=== PATIENT | male | born 1980 | race Caucasian/White ===

== ENCOUNTER 2019-06-18 14:29 | Emergency (ER) | payer OTHER ==
--- NOTE | 2019-06-18 14:40 | ERPHSYRPT ---
- History of Present Illness Time Seen by Provider: 06/18/19 14:29 Exam Limitations: no limitations Physician History: left flank and abdominal pain and since yesterday. The patient admits to using meth and marijuana for 5 days ago. Timing/Duration: yesterday Activities at Onset: none Quality: cramping Abdominal Pain Onset Location: LUQ, flank Pain Radiation: periumbilical Severity of Pain-Max: moderate Severity of Pain-Current: moderate Modifying Factors: Improves With: nothing Associated Symptoms: nausea, No back, No chest pain, No diaphoresis, No diarrhea , No fever/chills, No fatigue, No headache, No heartburn, No loss of appetite, No neck pain, No rash Previous symptoms: no prior history Allergies/Adverse Reactions: Penicillins Allergy (Verified 06/18/19 14:42) - Review of Systems Constitutional: No Fever, No Chills Eyes: No Symptoms Ears, Nose, & Throat: No Symptoms Respiratory: No Cough, No Dyspnea Cardiac: No Chest Pain, No Edema, No Syncope Abdominal/Gastrointestinal: Abdominal Pain, Nausea, Other (left flank pain), No Vomiting, No Diarrhea Genitourinary Symptoms: No Dysuria Musculoskeletal: No Back Pain, No Neck Pain Skin: No Rash Neurological: No Dizziness, No Focal Weakness, No Sensory Changes Psychological: No Symptoms Endocrine: No Symptoms All Other Systems: Reviewed and Negative - Nursing Vital Signs Nursing Vital Signs: Initial Vital Signs Temperature 97.6 F 06/18/19 14:35 Pulse Rate 96 H 06/18/19 14:35 Respiratory Rate 18 06/18/19 14:35 Blood Pressure 168/113 06/18/19 14:35 O2 Sat by Pulse Oximetry 98 06/18/19 14:35 Pain Scale Pain Intensity 0 - Physical Exam General Appearance: no apparent distress, alert Eye Exam: PERRL/EOMI, eyes nml inspection Ears, Nose, Throat Exam: normal ENT inspection, pharynx normal, moist mucous membranes Neck Exam: normal inspection, non-tender, supple, full range of motion Respiratory Exam: normal breath sounds, lungs clear, No respiratory distress Cardiovascular Exam: regular rate/rhythm, normal heart sounds, No friction rub Gastrointestinal/Abdomen Exam: soft, tenderness (left flank and left upper quadrant), No mass Male Genitalia Exam: No hernia Back Exam: normal inspection, normal range of motion, No CVA tenderness, No vertebral tenderness Extremity Exam: normal inspection, normal range of motion, pelvis stable Neurologic Exam: alert, oriented x 3, cooperative, normal mood/affect, nml cerebellar function, sensation nml, No motor deficits Skin Exam: normal color, warm, dry - Course Nursing assessment & vital signs reviewed: Yes - CT Exams Abdomen/Pelvis CT Interpretation: Tele-radiologist Report, Other (left upper e5 millimeters stone with high-grade obstruction and hydronephrosis.) Ordered Tests: Active Orders 24 hr Category Date Time Status IV Insertion STAT Care 06/18/19 14:36 Active NPO (ED) STAT Care 06/18/19 14:36 Active ABDOMEN AND PELVIS W/0 CONTRAS [CT] Stat Exams 06/18/19 14:37 Completed CBC W DIFF Stat Lab 06/18/19 15:00 Completed CMP Stat Lab 06/18/19 15:00 Completed LIPASE Stat Lab 06/18/19 15:00 Completed UA W/RFX UR CULTURE Stat Lab 06/18/19 15:33 Completed Urine Triage Profile Stat Lab 06/18/19 15:33 Completed Medication Summary Discontinued Medications Generic Name Dose Route Start Last Admin Trade Name Freq PRN Reason Stop Dose Admin Sodium Chloride 1,000 mls @ 999 mls/hr 06/18/19 14:36 06/18/19 15:49 Sodium Chloride 0.9% 1000 Ml IV 06/18/19 15:36 Infused .Q1H1M STA Infusion Sodium Chloride Confirm 06/18/19 14:43 Sodium Chloride 0.9% 1000 Ml Administered 06/18/19 14:44 Dose 1,000 mls @ ud .ROUTE .STK-MED ONE Ketorolac Tromethamine 15 mg 06/18/19 14:36 06/18/19 14:50 Toradol 30 Mg Injection IV 06/18/19 14:37 15 mg STAT ONE Administration Ketorolac Tromethamine Confirm 06/18/19 14:43 Toradol 30 Mg Injection Administered 06/18/19 14:44 Dose 30 mg .ROUTE .STK-MED ONE Ondansetron HCl 4 mg 06/18/19 14:36 06/18/19 14:49 Zofran 4 Mg/2 Ml Vial IV 06/18/19 14:37 4 mg STAT ONE Administration Ondansetron HCl Confirm 06/18/19 14:43 Zofran 4 Mg/2 Ml Vial Administered 06/18/19 14:44 Dose 4 mg .ROUTE .STK-MED ONE Lab/Rad Data: Laboratory Result Diagrams 06/18/19 15:00 06/18/19 15:00 Laboratory Results 06/18/19 06/18/19 06/18/19 Range/Units 15:33 15:33 15:00 WBC (4.0-10.5) K/mm3 RBC (4.1-5.6) M/mm3 Hgb (12.5-18.0) gm/dl Hct (42-50) % MCV (78-100) fl MCH (26-32) pg MCHC (32-36) g/dl RDW (11.5-14.0) % Plt Count (150-450) K/mm3 MPV (6-9.5) fl Gran % (36.0-66.0) % Eos # (Auto) (0-0.5) Absolute Lymphs (auto) (1.0-4.6) Absolute Monos (auto) (0.0-1.3) Lymphocytes % (24.0-44.0) % Monocytes % (0.0-12.0) % Eosinophils % (0.00-5.0) % Basophils % (0.0-0.4) % Absolute Granulocytes (1.4-6.9) Basophils # (0-0.4) Sodium 134 L (137-145) mmol/L Potassium 4.0 (3.5-5.1) mmol/L Chloride 102 (98-107) mmol/L Carbon Dioxide 23 (22-30) mmol/L Anion Gap 13.7 (5-15) MEQ/L BUN 10 (9-20) mg/dL Creatinine 1.38 H (0.66-1.25) mg/dL Estimated GFR > 60.0 ML/MIN Glucose 135 H (74-106) mg/dL Calcium 9.2 (8.4-10.2) mg/dL Total Bilirubin 0.70 (0.2-1.3) mg/dL AST 36 (17-59) U/L ALT 51 H (0-50) U/L Alkaline Phosphatase 92 (38-126) U/L Serum Total Protein 7.5 (6.3-8.2) g/dL Albumin 4.1 (3.5-5.0) g/dL Lipase 103 (23-300) U/L Urine Color YELLOW (YELLOW) Urine Appearance CLEAR (CLEAR) Urine pH 6.0 (5-6) Ur Specific [place] 1.014 (1.005-1.025) Urine Protein NEGATIVE (Negative) Urine Ketones NEGATIVE (NEGATIVE) Urine Blood NEGATIVE (0-5) Charles/ul Urine Nitrite NEGATIVE (NEGATIVE) Urine Bilirubin NEGATIVE (NEGATIVE) Urine Urobilinogen NEGATIVE (0-1) mg/dL Ur Leukocyte Esterase NEGATIVE (NEGATIVE) Urine WBC (Auto) NONE (0-5) /HPF Urine RBC (Auto) NONE (0-2) /HPF U Epithel Cells (Auto) NONE (FEW) /HPF Urine Bacteria (Auto) NONE (NEGATIVE) /HPF Urine Culture Reflexed NO (NO) Urine Glucose NEGATIVE (NEGATIVE) mg/dL Urine Opiates Level NEGATIVE (NEGATIVE) Ur Methadone NEGATIVE (NEGATIVE) Urine Barbiturates NEGATIVE (NEGATIVE) Ur Phencyclidine (PCP) NEGATIVE (NEGATIVE) Urine Amphetamine POSITIVE (NEGATIVE) U Benzodiazepine Level NEGATIVE (NEGATIVE) Urine Cocaine NEGATIVE (NEGATIVE) Urine Marijuana (THC) POSITIVE (NEGATIVE) 06/18/19 Range/Units 15:00 WBC 15.6 H (4.0-10.5) K/mm3 RBC 5.01 (4.1-5.6) M/mm3 Hgb 16.2 (12.5-18.0) gm/dl Hct 46.3 (42-50) % MCV 92.4 (78-100) fl MCH 32.3 H (26-32) pg MCHC 35.0 (32-36) g/dl RDW 12.5 (11.5-14.0) % Plt Count 280 (150-450) K/mm3 MPV 9.5 (6-9.5) fl Gran % 71.6 H (36.0-66.0) % Eos # (Auto) 0.12 (0-0.5) Absolute Lymphs (auto) 3.27 (1.0-4.6) Absolute Monos (auto) 1.02 (0.0-1.3) Lymphocytes % 20.9 L (24.0-44.0) % Monocytes % 6.5 (0.0-12.0) % Eosinophils % 0.8 (0.00-5.0) % Basophils % 0.2 (0.0-0.4) % Absolute Granulocytes 11.19 H (1.4-6.9) Basophils # 0.03 (0-0.4) Sodium (137-145) mmol/L Potassium (3.5-5.1) mmol/L Chloride (98-107) mmol/L Carbon Dioxide (22-30) mmol/L Anion Gap (5-15) MEQ/L BUN (9-20) mg/dL Creatinine (0.66-1.25) mg/dL Estimated GFR ML/MIN Glucose (74-106) mg/dL Calcium (8.4-10.2) mg/dL Total Bilirubin (0.2-1.3) mg/dL AST (17-59) U/L ALT (0-50) U/L Alkaline Phosphatase (38-126) U/L Serum Total Protein (6.3-8.2) g/dL Albumin (3.5-5.0) g/dL Lipase (23-300) U/L Urine Color (YELLOW) Urine Appearance (CLEAR) Urine pH (5-6) Ur Specific [place] (1.005-1.025) Urine Protein (Negative) Urine Ketones (NEGATIVE) Urine Blood (0-5) Charles/ul Urine Nitrite (NEGATIVE) Urine Bilirubin (NEGATIVE) Urine Urobilinogen (0-1) mg/dL Ur Leukocyte Esterase (NEGATIVE) Urine WBC (Auto) (0-5) /HPF Urine RBC (Auto) (0-2) /HPF U Epithel Cells (Auto) (FEW) /HPF Urine Bacteria (Auto) (NEGATIVE) /HPF Urine Culture Reflexed (NO) Urine Glucose (NEGATIVE) mg/dL Urine Opiates Level (NEGATIVE) Ur Methadone (NEGATIVE) Urine Barbiturates (NEGATIVE) Ur Phencyclidine (PCP) (NEGATIVE) Urine Amphetamine (NEGATIVE) U Benzodiazepine Level (NEGATIVE) Urine Cocaine (NEGATIVE) Urine Marijuana (THC) (NEGATIVE) - Progress Progress: improved Progress Note: pain is significantly better. The on the CT scan patient has a 5 mm upper ureteric stone with high-grade obstruction. I offered transfer to the hospital. Patient refused stating that he wants to spend the new year to home. No acute life or limb threatening condition. The urine does not show any signs of infection. The explained the need to see the urologist for further management as soon as possible. Patient understood and agreed. 06/18/19 16:28 Counseled pt/family regarding: lab results, diagnosis, need for follow-up, rad results (See. urologist as soon as possible) - Departure Departure Disposition: Home Clinical Impression: Ureteric calculus, Ureteric colic, Substance abuse Condition: Good Critical Care Time: No Referrals: HUBER MURILLO [Family Provider] - 06/19/19 Instructions: Kidney Stones in Adults, Extracorporeal Shock Wave Lithotripsy for Kidney Stones Plan of Treatment: see urologist as soon as possible Prescriptions: Ondansetron ODT 4 MG [Zofran Odt 4 mg] 4 mg PO Q6H PRN PRN #10 tab.rapdis PRN Reason: Vomiting Ketorolac Tromethamine [Toradol] 10 mg PO BID PRN 3 Days #6 tablet PRN Reason: Pain Smz/Tmp Ds Tablet [Bactrim Ds Tablet] 1 udtab PO BID 5 Days #10 tablet Tamsulosin HCl 0.4 mg [Flomax 0.4 MG] 0.4 mg PO DAILY 5 Days #5 cap
[2019-06-18] MEDS ORDERED: TORAdol 30 mg Injection ONE (14:43)
[2019-06-18] MEDS ORDERED: Sodium Chloride 0.9% 1000 ML 1,000 ML ONE (14:43)
[2019-06-18] MEDS ORDERED: Zofran 4 MG/2 ML VIAL ONE (14:43)
[2019-06-18] MEDS: Sodium Chloride 0.9% 1000 ML 1,000 ML IV STA (14:46)
[2019-06-18] MEDS: Zofran 4 MG/2 ML VIAL IV ONE (14:49)
[2019-06-18] MEDS: TORAdol 30 mg Injection IV ONE (14:50)
[2019-06-18 15:16] LABS: Absolute Neutrophil Ct (ANC) 11.19 (1.4-6.9); BASOPHIL % 0.2 % (0.0-0.4); Basophil (Absolute #) 0.03 (0-0.4); Eosinophil % 0.8 % (0.00-5.0); Eosinophil (Absolute #) 0.12 (0-0.5); Hematocrit 46.3 % (42-50); Hemoglobin 16.2 gm/dl (12.5-18.0); Lymphocyte (Absolute #) 3.27 (1.0-4.6); Lymphocytes % 20.9 % (24.0-44.0); Mean Cell Volume 92.4 fl (78-100); Mean Corpuscular Hemoglobin 32.3 pg (26-32); Mean Platelet Volume 9.5 fl (6-9.5); Monocyte (Absolute #) 1.02 (0.0-1.3); Monocytes % 6.5 % (0.0-12.0); Neutrophil % 71.6 % (36.0-66.0); Platelet Count 280 K/mm3 (150-450); Red Blood Count 5.01 M/mm3 (4.1-5.6); Red Cell Distribution Width 12.5 % (11.5-14.0); White Blood Count 15.6 K/mm3 (4.0-10.5)
[2019-06-18 15:29] LABS: ALBUMIN 4.1 g/dL (3.5-5.0); ALKALINE PHOSPHATASE 92 U/L (38-126); ANION GAP 13.7 MEQ/L (5-15); BLOOD UREA NITROGEN 10 mg/dL (9-20); CHLORIDE 102 mmol/L (98-107); Calcium 9.2 mg/dL (8.4-10.2); Carbon Dioxide 23 mmol/L (22-30); Creatinine 1 1.38 mg/dL (0.66-1.25); Glucose 135 mg/dL (74-106); LIPASE 103 U/L (23-300); SGOT/AST 36 U/L (17-59); SGPT/ALT 51 U/L (0-50); SODIUM 134 mmol/L (137-145); Total Protein 7.5 g/dL (6.3-8.2)
--- NOTE | 2019-06-18 15:47 | XRAY ---
Indication: Flank pain. Multiple contiguous axial images obtained through the abdomen and pelvis without contrast as ordered. Comparison: None Lung bases demonstrates minimal bibasilar dependent atelectasis and small left base calcified granuloma. Medial right middle lobe demonstrates 4 mm noncalcified nodule probably granulomatous. No infiltrate or effusion. Heart is not enlarged. Noncontrasted stomach and bowel loops appear nonobstructed. Normal appendix. There is a 5-6 mm proximal left ureter calculus, approximately L4 level. Proximal left ureter is prominent and there is moderate hydronephrosis with perinephric fluid/stranding favoring high-grade obstruction. Left kidney demonstrates additional 7 mm calculus and punctate calculus. Remaining liver, gallbladder, pancreas, spleen, adrenal glands, right kidney, right ureter, and bladder appear unremarkable for noncontrast exam. Minimal distal aortic calcifications without AAA. Osseous structures intact. Impression: 1. 5-6 mm proximal left ureter calculus producing high-grade obstruction as detailed. Additional left renal micro-calculi. 2. Right middle lobe noncalcified micronodule probably granulomatous as there is evidence for old granulomas disease elsewhere. 3. Remaining CT abdomen/pelvis without contrast exam is negative. CTDI 18.30
[2019-06-18 15:51] LABS: Appearance CLEAR (CLEAR); Bilirubin NEGATIVE (NEGATIVE); Blood NEGATIVE Ery/ul (0-5); Glucose NEGATIVE (NEGATIVE); Ketones NEGATIVE (NEGATIVE); Leukocyte Esterase NEGATIVE (NEGATIVE); Nitrite NEGATIVE (NEGATIVE); Protein,Urine Dip NEGATIVE (Negative); Specific Gravity 1.014 (1.005-1.025); Urobilinogen NEGATIVE mg/dL (0-1)
[2019-06-18 16:04] LABS: Barbiturate,Urine NEGATIVE (NEGATIVE); Benzodiazepine,Urine NEGATIVE (NEGATIVE); Cocaine,Urine NEGATIVE (NEGATIVE); Methadone,Urine NEGATIVE (NEGATIVE); Opiate,Urine NEGATIVE (NEGATIVE); PCP,Urine NEGATIVE (NEGATIVE); THC,Urine POSITIVE (NEGATIVE)
[2019-06-18 16:10] VITALS: BP 121/81; PULSE 72; O2SAT 96
[2019-06-18 16:25] LABS: Amphetamine,Urine POSITIVE (NEGATIVE)
== END 2019-06-18 17:20 | disposition home or self-care (01) ==
LOC: ED 14:29
DX: N20.1 Calculus of ureter (principal); N23 Unspecified renal colic; F19.10 Other psychoactive substance abuse, uncomplicated
CPT/HCPCS: 36000; 36415; 74176; 80053; 80307; 81001; 83690; 85025; 96360; 96374; 96375; 99284; J1885; J2405

== ENCOUNTER 2020-01-05 14:03 | Emergency (ER) | payer MEDICAID, OTHER ==
[2020-01-05] MEDS ORDERED: Fluor-I-Strip/Ful-Flo OP ONE ×2 (14:09→14:37)
[2020-01-05] MEDS ORDERED: Eye-Stream Solution ONE (14:09)
[2020-01-05] MEDS ORDERED: TETRACAINE 0.5% STERI-UNIT SOL OP ONE (14:09)
[2020-01-05 14:17] VITALS: BP 141/93; O2SAT 98
--- NOTE | 2020-01-05 14:22 | ERPHSYRPT ---
- History of Present Illness Time Seen by Provider: 01/05/20 14:15 Patient Subjective Stated Complaint: Pt states "About 3 days ago I had this pimple like thing above my eyebrow and now it is everywhere over my left eye." Triage Nursing Assessment: Pt presented aelrt and oriented X 3, skin pwd PT ambulates with an upright steady gait, able to speak in clear full sentences pt has red rash noted to left face. Physician History: Claudio presents with a painful area of the left forehead for several days and now has developed a rash vesicular in that area. He is upper and lower lids have been swollen but he denies any change in his vision he denies any tenderness at the tip of his nose. He denies any photophobia. Timing/Duration: day(s) (3) Quality: burning, itchy, painful Severity: moderate Location: scalp (Left Forehead and scalp), face Possible Causes: no cause identified Associated Symptoms: blisters, headache Allergies/Adverse Reactions: Penicillins Allergy (Verified 06/18/19 14:42) Hx Tetanus, Diphtheria Vaccination/Date Given: Yes Hx Influenza Vaccination/Date Given: Yes Hx Pneumococcal Vaccination/Date Given: No Immunizations Up to Date: Yes Travel Risk - International Travel Have you traveled outside of the country in past 3 weeks: No - Coronavirus Screening Are you exhibiting any of the following symptoms?: No Close contact with a COVID-19 positive Pt in past 14-21 Days: No - Review of Systems Constitutional: No Fever, No Chills Eyes: Tearing, Other (edema of the eyelids) Ears, Nose, & Throat: No Symptoms Respiratory: No Cough, No Dyspnea Cardiac: No Chest Pain, No Edema, No Syncope Abdominal/Gastrointestinal: No Abdominal Pain, No Nausea, No Vomiting, No Diarrhea Genitourinary Symptoms: No Dysuria Musculoskeletal: No Back Pain, No Neck Pain Skin: Rash, Skin Lesions Neurological: No Dizziness, No Focal Weakness, No Sensory Changes Psychological: No Symptoms Endocrine: No Symptoms All Other Systems: Reviewed and Negative - Past Medical History Pertinent Past Medical History: No Neurological History: No Pertinent History ENT History: No Pertinent History Cardiac History: No Pertinent History Respiratory History: No Pertinent History Endocrine Medical History: No Pertinent History Musculoskeletal History: No Pertinent History GI Medical History: No Pertinent History Psycho-Social History: No Pertinent History Male Reproductive Disorders: No Pertinent History - Past Surgical History Past Surgical History: Yes Neuro Surgical History: No Pertinent History Cardiac: No Pertinent History Respiratory: No Pertinent History Gastrointestinal: No Pertinent History Genitourinary: No Pertinent History Musculoskeletal: No Pertinent History Male Surgical History: No Pertinent History Other Surgical History: kidney stone stent - Social History Smoking Status: Never smoker How long have you smoked: years Exposure to second hand smoke: Yes Drug Use: marijuana, methamphetamines Patient Lives Alone: Yes - Nursing Vital Signs Nursing Vital Signs: Initial Vital Signs Temperature 98.8 F 01/05/20 14:08 Pulse Rate 116 H 01/05/20 14:08 Respiratory Rate 22 01/05/20 14:08 Blood Pressure 141/93 01/05/20 14:08 O2 Sat by Pulse Oximetry 97 01/05/20 14:08 Pain Scale Pain Intensity 8 - Physical Exam General Appearance: mild distress, alert Eye Exam: PERRL/EOMI, other (Lids are swollen fluorescein dye in the left eye and examination of bluelight showed no obvious ulcerations or erosions.) Ears, Nose, Throat Exam: normal ENT inspection, pharynx normal, moist mucous membranes Neck Exam: normal inspection, non-tender, supple, full range of motion Respiratory Exam: normal breath sounds, lungs clear, No respiratory distress Cardiovascular Exam: regular rate/rhythm, normal heart sounds Gastrointestinal/Abdomen Exam: soft, mass, No tenderness Back Exam: normal inspection, normal range of motion, No CVA tenderness, No vertebral tenderness Extremity Exam: normal inspection, normal range of motion Neurologic Exam: alert, oriented x 3, cooperative, normal mood/affect, sensation nml, EOM palsy, No motor deficits Skin Exam: rash, other (Generally the skin is warm and dry however in the left forehead and left scalp there is a vesicular rash with some crusting. Consistent with zoster) Lymphatic Exam: adenopathy SpO2 Interpretation: normal SpO2: 98 O2 Delivery: Room Air Procedures - Eye Procedure Alcaine Drops Administered: Yes - Course Nursing assessment & vital signs reviewed: Yes Ordered Tests: Medication Summary Discontinued Medications Generic Name Dose Route Start Last Admin Trade Name Freq PRN Reason Stop Dose Admin Eye Irrigation Solution Confirm 01/05/20 14:09 Eye-Stream Solution Administered 01/05/20 14:10 Dose 30 ml .ROUTE .STK-MED ONE Fluorescein Sodium Confirm 01/05/20 14:09 Wxevi-C-Mtcmb/Ful-Yamil Administered 01/05/20 14:10 Dose 1 mg OP .STK-MED ONE Tetracaine HCl Confirm 01/05/20 14:09 Tetracaine 0.5% Steri-Unit Wilma Administered 01/05/20 14:10 Dose 4 ml OP .STK-MED ONE - Progress Progress: unchanged - Departure Departure Disposition: Home Clinical Impression: Herpes zoster Condition: Stable Critical Care Time: No Referrals: GERALD GAMBINO MD [Primary Care Provider] - Instructions: Shingles (DC) Additional Instructions: 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
[2020-01-05] MEDS ORDERED: TETRACAINE 0.5% STERI-UNIT SOL OP STA (14:34)
[2020-01-05] MEDS ORDERED: Eye-Stream Solution OP ONE (14:35)
[2020-01-05 14:43] VITALS: PULSE 110
== END 2020-01-05 14:56 | disposition home or self-care (01) ==
LOC: ED 14:03
DX: B02.9 Zoster without complications (principal)
CPT/HCPCS: 99283; A9270-GY

== ENCOUNTER 2021-01-10 14:08 | Emergency (ER) | payer MEDICAID, OTHER ==
[2021-01-10 14:32] VITALS: BP 166/98; PULSE 100; O2SAT 96
[2021-01-10] MEDS ORDERED: Adacel Vial IM ONE ×2 (14:33→14:48)
--- NOTE | 2021-01-10 14:34 | ERPHSYRPT ---
- History of Present Illness Time Seen by Provider: 01/10/21 14:09 Source: patient Exam Limitations: no limitations Patient Subjective Stated Complaint: Pt was at a persons house to look at a puppy to buy when he was attacked by 6-8 ramirez suri terrior dogs (not puppies), pt was bit on his posterior left calf and right calf and right buttock Triage Nursing Assessment: Pt was brought to the ER by his boyfriend, hypertensive, rates pain 2/10, not actively bleeding, denies any other injuries Physician History: 41 years old male presented in the ER with chief complaint of dog bite at bilateral lower legs and right buttock area when he was placed to buy puppy and was attacked by multiple [place] Sur[place] dog's prior to arrival which according to tandem operator are immunized. There was minimal bleeding initially but stopped. Complaining of dull aching to burning pain with palpation. Unsure about tetanus status. No difficulty movements/walking. Timing/Duration: today, sudden, improved Quality: burning, painful Severity: mild Location: extremities Possible Causes: other Associated Symptoms: rash, swelling/mass/lumps Allergies/Adverse Reactions: Penicillins Allergy (Verified 01/10/21 14:31) Hx Tetanus, Diphtheria Vaccination/Date Given: Yes Hx Influenza Vaccination/Date Given: Yes Hx Pneumococcal Vaccination/Date Given: No Travel Risk - International Travel Have you traveled outside of the country in past 3 weeks: No - Coronavirus Screening Are you exhibiting any of the following symptoms?: No Close contact with a COVID-19 positive Pt in past 14-21 Days: No - Vaccine Status Have you recieved a Covid-19 vaccination: No - Review of Systems Constitutional: No Symptoms Eyes: No Symptoms Ears, Nose, & Throat: No Symptoms Respiratory: No Symptoms Cardiac: No Symptoms Abdominal/Gastrointestinal: No Symptoms Genitourinary Symptoms: No Symptoms Musculoskeletal: Injury Skin: Skin Lesions Neurological: No Symptoms Psychological: No Symptoms Endocrine: No Symptoms Hematologic/Lymphatic: No Symptoms - Past Medical History Pertinent Past Medical History: No Neurological History: No Pertinent History ENT History: No Pertinent History Cardiac History: No Pertinent History Respiratory History: No Pertinent History Endocrine Medical History: No Pertinent History Musculoskeletal History: No Pertinent History GI Medical History: No Pertinent History Psycho-Social History: No Pertinent History Male Reproductive Disorders: No Pertinent History - Past Surgical History Past Surgical History: Yes Neuro Surgical History: No Pertinent History Cardiac: No Pertinent History Respiratory: No Pertinent History Gastrointestinal: No Pertinent History Genitourinary: No Pertinent History Musculoskeletal: No Pertinent History Male Surgical History: No Pertinent History Other Surgical History: kidney stone stent - Social History Smoking Status: Current every day smoker How long have you smoked: years Exposure to second hand smoke: Yes Drug Use: marijuana, methamphetamines Patient Lives Alone: No - Nursing Vital Signs Nursing Vital Signs: Initial Vital Signs Temperature 96 F 01/10/21 14:17 Pulse Rate 100 H 01/10/21 14:17 Blood Pressure 166/98 01/10/21 14:17 O2 Sat by Pulse Oximetry 96 01/10/21 14:17 Pain Scale Pain Intensity 2 - Physical Exam General Appearance: no apparent distress Eye Exam: PERRL/EOMI Neck Exam: normal inspection, supple, full range of motion Respiratory Exam: normal breath sounds, lungs clear Cardiovascular Exam: regular rate/rhythm, normal heart sounds Extremity Exam: other (Multiple dog bite vaz on the left lower leg/right lower leg and right buttock with no active bleeding or spurting. Minimal erythema around. Mildly tenderness to palpation.) Neurologic Exam: alert, oriented x 3, cooperative Skin Exam: normal color SpO2 Interpretation: normal SpO2: 96 O2 Delivery: Room Air Ordered Tests: Medication Summary Discontinued Medications Generic Name Dose Route Start Last Admin Trade Name Freq PRN Reason Stop Dose Admin Diphtheria/Tetanus/Acell Pertussis 0.5 ml 01/10/21 14:33 Adacel Vial IM 01/10/21 14:34 .ONCE ONE - Progress Progress: unchanged Progress Note: 01/10/21 14:38 Tetanus is updated. Paperwork for health department is filled out. Since patient is allergic to penicillin, will start him on doxy and Flagyl. Ou tpatient follow-up recommended discussed signs symptoms of worsening needing return to ER which he seems understanding. Stable for discharge. Counseled pt/family regarding: diagnosis, need for follow-up - Departure Departure Disposition: Home Clinical Impression: Dog bite Qualifiers: Encounter type: initial encounter Qualified Code(s): W54.0XXA - Bitten by dog, initial encounter Condition: Stable Critical Care Time: No Referrals: GERALD GAMBINO MD [Primary Care Provider] - Follow Up with PCP/3 days Instructions: Animal Bites (DC) Additional Instructions: Keep it clean. Daily wash it with Dial soap. Take Tylenol/ibuprofen as needed for pain control. Follow-up with primary care physician for reevaluation. Continue with antibiotics. Return to ER for worsening pain swelling redness discharge/fever chills etc. Prescriptions: Metronidazole 500 mg [Flagyl 500 MG] 500 mg PO TID #21 tablet Doxycycline Hyclate 100 mg [Vibramycin 100 MG] 100 mg PO BID #14 tab
== END 2021-01-10 15:03 | disposition home or self-care (01) ==
LOC: ED 14:08
DX: M79.662 Pain in left lower leg (principal); M79.661 Pain in right lower leg; R21 Rash and other nonspecific skin eruption; R60.9 Edema, unspecified; W54.0XXA Bitten by dog, initial encounter
CPT/HCPCS: 90471; 90715; 99283

== ENCOUNTER 2021-01-18 05:45 | Emergency (ER) | payer OTHER ==
[2021-01-18 06:04] VITALS: O2SAT 97
--- NOTE | 2021-01-18 06:55 | ERPHSYRPT ---
- History of Present Illness Source: patient Exam Limitations: no limitations Patient Subjective Stated Complaint: pt states "I was getting in the shower and slipped and fell." Triage Nursing Assessment: pt came into the er via wheelchair; pt is axo x4; c/o left lower leg injury; state 6/10 pain to LLE; pt states pain increases with weight bearing; pt states sharp shooting pain with weight bearing; no swelling edema present; to deformity present to LLE; strong pedal pulses to LLE; vitals wnl Method of Injury: fell Occurred: just prior to arrival Quality: sharpness Severity of Pain-Max: moderate Severity of Pain-Current: moderate Lower Extremities Pain: leg: left Modifying Factors: Improves With: immobilization. Worsens With: movement Hx Tetanus, Diphtheria Vaccination/Date Given: Yes Hx Influenza Vaccination/Date Given: No Hx Pneumococcal Vaccination/Date Given: No - History of Present Illness Time Seen by Provider: 01/18/21 06:50 Physician History: 41 years old male presented in the ER with chief complaint of left leg pain after he slipped while getting into the shower leading to fall 1 leg on the either. He is having difficulty weightbearing/ambulation. Moderate to severe sharp pain in the [place] area. No difficulty movements of ankle or knee. No injury anywhere else. (CHEO BUNCH) Allergies/Adverse Reactions: Penicillins Allergy (Verified 01/18/21 05:50) Travel Risk - International Travel Have you traveled outside of the country in past 3 weeks: No - Coronavirus Screening Are you exhibiting any of the following symptoms?: No Close contact with a COVID-19 positive Pt in past 14-21 Days: No - Vaccine Status Have you recieved a Covid-19 vaccination: No - Review of Systems Constitutional: No Symptoms Eyes: No Symptoms Ears, Nose, & Throat: No Symptoms Respiratory: No Symptoms Cardiac: No Symptoms Abdominal/Gastrointestinal: No Symptoms Genitourinary Symptoms: No Symptoms Musculoskeletal: Injury Skin: No Symptoms Neurological: No Symptoms Endocrine: No Symptoms Hematologic/Lymphatic: No Symptoms Immunological/Allergic: No Symptoms - Past Medical History Pertinent Past Medical History: No Neurological History: No Pertinent History ENT History: No Pertinent History Cardiac History: No Pertinent History Respiratory History: No Pertinent History Endocrine Medical History: No Pertinent History Musculoskeletal History: No Pertinent History GI Medical History: No Pertinent History History: No Pertinent History Psycho-Social History: No Pertinent History Male Reproductive Disorders: No Pertinent History - Past Surgical History Past Surgical History: Yes Neuro Surgical History: No Pertinent History Cardiac: No Pertinent History Respiratory: No Pertinent History Gastrointestinal: No Pertinent History Genitourinary: No Pertinent History Musculoskeletal: No Pertinent History Male Surgical History: No Pertinent History Other Surgical History: kidney stone stent - Social History Smoking Status: Current every day smoker How long have you smoked: years Exposure to second hand smoke: Yes Drug Use: none Patient Lives Alone: No - Physical Exam General Appearance: no apparent distress, alert Neck Exam: normal inspection, supple, full range of motion Cardiovascular/Respiratory Exam: chest non-tender, normal breath sounds, regular rate/rhythm Gastrointestinal/Abdominal Exam: non-tender, soft Back Exam: normal inspection, normal range of motion Hips Exam: bilateral: non-tender, normal inspection, normal range of motion Legs Exam: right leg: non-tender, normal inspection, normal range of motion, no evidence of injury, left leg: bone tenderness (Can), pain, soft tissue tenderness Knees Exam: bilateral knee: non-tender, normal inspection, normal range of motion, no evidence of injury Ankle Exam: bilateral ankle: non-tender, normal inspection, normal range of motion, no evidence of injury Foot Exam: bilateral foot: non-tender, normal inspection Neuro/Tendon Exam: normal sensation, normal motor functions, normal tendon functions Mental Status Exam: alert, oriented x 3 Skin Exam: normal color SpO2 Interpretation: normal SpO2: 97 O2 Delivery: Room Air - Nursing Vital Signs Nursing Vital Signs: Initial Vital Signs Temperature 97.9 F 01/18/21 05:52 Pulse Rate 108 H 01/18/21 05:52 Respiratory Rate 16 01/18/21 05:52 Blood Pressure 121/78 01/18/21 05:52 O2 Sat by Pulse Oximetry 97 01/18/21 05:52 Pain Scale Pain Intensity 6 Ordered Tests: Active Orders 24 hr Category Date Time Status Crutches STAT Care 01/18/21 07:13 Completed - Progress Progress: unchanged Counseled pt/family regarding: diagnosis, need for follow-up, rad results - Progress Progress Note: Dr. Almazan called our ED at approximately 9:[address] Almazan informed us that patient has a hairline fracture midshaft left fibula. Patient was discharged home. He was given crutches. Patient was given follow-up with you [facility]. We will contact patient to inform him of the updated findings. Patient will maintain nonweightbearing status until advised otherwise by his compensation specialist. Emergency patient x-ray correlation form was completed. 01/18/21 09:22 (OLINDA FRY) 01/18/21 06:53 I offered pain medication which he refused. X-rays reviewed by me did not reveal any obvious fracture. Official report is pending. Recommended Tylenol ibuprofen to take as needed. Outpatient follow-up. (CHEO BUNCH) - Departure Departure Disposition: Home Critical Care Time: No - Departure Clinical Impression: Contusion of left lower leg Qualifiers: Encounter type: initial encounter Qualified Code(s): S80.12XA - Contusion of left lower leg, initial encounter Condition: Stable Referrals: GERALD GAMBINO MD [Primary Care Provider] - Follow Up with PCP/3 days Instructions: Contusion (DC) Additional Instructions: Take Tylenol/ibuprofen as needed. Weightbearing as tolerated. Outpatient follow-up with primary care physician for reevaluation. Return to ER for intractable pain, difficulty weightbearing, swelling etc. Prescriptions: Ibuprofen 600 mg PO Q6HPRN PRN 10 Days #20 tablet PRN Reason: Pain Outpatient Orders: Ortho Referral Time Frame: 1 Day, Facility: [facility], Location: ORTHO CLINIC
[2021-01-18 07:11] VITALS: BP 118/72; PULSE 89
--- NOTE | 2021-01-18 09:17 | XRAY ---
Indication: Pain following fall. Comparison: None 2 view left lower leg demonstrates tiny hairline cortical fracture mid shaft of fibula. No other bony, articular, or soft tissue abnormalities. Comment: Fracture not reported by interpreting ER clinician. Telephone report given to Dr. Ross in the ER at 0911 hrs. on January 18, 2021.
== END 2021-01-18 07:04 | disposition home or self-care (01) ==
LOC: ED 05:45
DX: S82.402A Unspecified fracture of shaft of left fibula, initial encounter for closed fracture (principal); S80.12XA Contusion of left lower leg, initial encounter; W18.2XXA Fall in (into) shower or empty bathtub, initial encounter
CPT/HCPCS: 73590; 99283

== ENCOUNTER 2024-03-21 10:46 | Emergency (ER) | payer OTHER ==
--- NOTE | 2024-03-21 10:58 | ERPHSYRPT ---
- History of Present Illness Time Seen by Provider: 03/21/24 10:57 Source: patient Exam Limitations: no limitations Physician History: This is a 44-year-old white male patient who arrives by private vehicle escorted by a friend because of intermittent, seemingly unrelated symptoms of heaviness to his lower back, bilateral upper extremity weakness right greater than left and chest pulling pressure anteriorly without radiation anywhere else. Patient is a former user of illicit drugs. He states he does not have good veins to place an IV or draw blood from. He is currently not on any medications. His primary care provider is Dr. Gambino. He has had no chest pain. He denies headache. He has no history of trauma to the head or back or chest. He is a daily smoker of tobacco cigarettes and occasionally uses marijuana. He states that if we are to draw blood or place an intravenous line, he will allow us only wants to do that. Medical staff has had difficulty placing intravenous line he does not want to be stuck more than a single try. They did use an ultrasound in the past. Patient has no history of TIAs or strokes. He has no history of coronary artery disease. Timing/Duration: week(s) (In the last couple of weeks), intermittent, worse (Since March 18, 2024) Quality: pressure, other (Pulling) Back Pain Location: lumbar spine Severity of Pain-Max: moderate (Heaviness) Severity of Pain-Current: moderate (Heaviness) Modifying Factors: Improves With: movement Associated Symptoms: weakness (Bilateral upper extremities right greater than left), lower back pain (Described as a heaviness) Previous symptoms: no prior history, no recent treatment Allergies/Adverse Reactions: Penicillins Allergy (Verified 03/21/24 11:10) Hx Tetanus, Diphtheria Vaccination/Date Given: Yes Hx Influenza Vaccination/Date Given: No Hx Pneumococcal Vaccination/Date Given: No Travel Risk - International Travel Have you traveled outside of the country in past 3 weeks: No - Emerging Infectious Disease Are you exhibiting symptoms associated with any current EIDs: No - Review of Systems Constitutional: Weakness (Bilateral upper extremities right greater than left) Eyes: No Symptoms Ears, Nose, & Throat: No Symptoms Respiratory: No Symptoms Cardiac: No Symptoms, No Chest Pain Abdominal/Gastrointestinal: No Symptoms Genitourinary Symptoms: No Symptoms Musculoskeletal: Back Pain (Scribed as a heaviness) Skin: No Symptoms Neurological: No Symptoms Psychological: Anxiety Endocrine: No Symptoms Hematologic/Lymphatic: No Symptoms Immunological/Allergic: No Symptoms All Other Systems: Reviewed and Negative - Past Medical History Pertinent Past Medical History: No Neurological History: No Pertinent History ENT History: No Pertinent History Cardiac History: No Pertinent History Respiratory History: No Pertinent History Endocrine Medical History: No Pertinent History Musculoskeletal History: No Pertinent History GI Medical History: No Pertinent History History: No Pertinent History Psycho-Social History: No Pertinent History Male Reproductive Disorders: No Pertinent History - Past Surgical History Past Surgical History: Yes Neuro Surgical History: No Pertinent History Cardiac: No Pertinent History Respiratory: No Pertinent History Gastrointestinal: No Pertinent History Genitourinary: No Pertinent History Musculoskeletal: No Pertinent History Male Surgical History: No Pertinent History Other Surgical History: kidney stone stent - Social History Smoking Status: Current every day smoker How long have you smoked: years Exposure to second hand smoke: Yes Drug Use: none Patient Lives Alone: No - Nursing Vital Signs Nursing Vital Signs: Initial Vital Signs Temperature 97.5 F 03/21/24 10:58 Pulse Rate 95 H 03/21/24 10:58 Blood Pressure 142/107 03/21/24 10:58 O2 Sat by Pulse Oximetry 98 03/21/24 10:58 Pain Scale Pain Intensity 0 - Physical Exam General Appearance: no apparent distress, alert, anxiety Ears, Nose, Throat Exam: normal ENT inspection Neck Exam: normal inspection, non-tender, supple, full range of motion Respiratory Exam: normal breath sounds, lungs clear, airway intact, No chest tenderness, No respiratory distress Cardiovascular Exam: regular rate/rhythm, normal heart sounds, normal peripheral pulses Gastrointestinal Exam: soft, normal bowel sounds, No tenderness Rectal Exam: not done Back Exam: normal inspection, normal range of motion, No CVA tenderness, No vertebral tenderness Extremity Exam: normal inspection, normal range of motion, pelvis stable Neurologic Exam: alert, oriented x 3, cooperative, stockroom attendant II-XII nml as tested, nml cerebellar function, nml station & gait, sensation nml Skin Exam: normal color, warm, dry Lymphatic Exam: No adenopathy SpO2 Interpretation: normal O2 Delivery: Room Air - Course Nursing assessment & vital signs reviewed: Yes Ordered Tests: Active Orders 24 hr Category Date Time Status EKG-ER Only STAT Care 03/21/24 11:19 Active IV Insertion STAT Care 03/21/24 11:19 Active NPO (ED) STAT Care 03/21/24 11:20 Active ABDOMEN AND PELVIS W/0 CONTRAS [CT] Stat Exams 03/21/24 11:20 Completed HEAD WITHOUT CONTRAST [CT] Stat Exams 03/21/24 11:21 Completed RECONSTRUCTION [CT] Stat Exams 03/21/24 11:22 Completed AMYLASE Stat Lab 03/21/24 11:40 Completed CBC W DIFF Stat Lab 03/21/24 11:40 Completed CMP Stat Lab 03/21/24 11:40 Completed CULTURE,URINE Stat Lab 03/21/24 13:28 Received LIPASE Stat Lab 03/21/24 11:40 Completed TROPONIN Q4H Lab 03/21/24 11:43 Completed TROPONIN Q4H Lab 03/21/24 15:45 Ordered TROPONIN Q4H Lab 03/21/24 19:45 Ordered TROPONIN Q4H Lab 03/21/24 23:45 Ordered UA W/RFX UR CULTURE Stat Lab 03/21/24 13:28 Completed Urine Triage Profile Stat Lab 03/21/24 13:28 Received Medication Summary Discontinued Medications Generic Name Dose Route Start Last Admin Trade Name Freq PRN Reason Stop Dose Admin Doxycycline Hyclate 100 mg 03/21/24 14:10 Doxycycline Hyclate 100 Mg Tablet PO 03/21/24 14:11 STAT ONE Lab/Rad Data: Laboratory Result Diagrams 03/21/24 11:40 03/21/24 11:40 Laboratory Results 03/21/24 03/21/24 03/21/24 Range/Units 13:28 11:43 11:40 WBC (4.23-9.07) x10^3/uL RBC (4.63-6.08) x10^6/uL Hgb (13.7-17.5) g/dL Hct (40.1-51.0) % MCV (79.0-92.2) fL MCH (25.7-32.2) pg MCHC (32.3-36.5) g/dL RDW (11.6-14.4) % Plt Count (163-337) x10^3/uL MPV (9.4-12.4) fL Gran % (34.0-67.9) % Immature Gran % (Auto) (0.001-0.429) % Nucleat RBC Rel Count (0.00-0.2) % Eos # (Auto) (0.04-0.54) x10^3/uL Immature Gran # (Auto) (0.001-0.031) x10^3u/L Absolute Lymphs (auto) (1.32-3.57) x10^3/uL Absolute Monos (auto) (0.30-0.82) x10^3/uL Absolute Nucleated RBC (0.00-0.012) x10^3u/L Lymphocytes % (21.8-53.1) % Monocytes % (5.3-12.2) % Eosinophils % (0.8-7.0) % Basophils % (0.2-1.2) % Absolute Granulocytes (1.78-5.38) x10^3/uL Basophils # (0.01-0.08) x10^3/uL Sodium 142 (135-145) mmol/L Potassium 3.9 (3.5-5.1) mmol/L Chloride 106 (98-107) mmol/L Carbon Dioxide 25 (22-30) mmol/L Anion Gap 14.4 (5-15) MEQ/L BUN 17 (9-20) mg/dL Creatinine 0.90 (0.66-1.25) mg/dL Estimated GFR 108.7 ML/MIN Glucose 169 H (74-106) mg/dL Calcium 9.3 (8.4-10.2) mg/dL Total Bilirubin 0.70 (0.2-1.3) mg/dL AST 37 (17-59) U/L ALT 55 H (0-50) U/L Alkaline Phosphatase 81 (38-126) U/L Troponin I < 0.012 (0.000-0.033) ng/mL Serum Total Protein 7.6 (6.3-8.2) g/dL Albumin 4.4 (3.5-5.0) g/dL Amylase 186 H (30-110) U/L Lipase 1290 H (23-300) U/L Urine Color Yellow (Yellow) Urine Appearance Turbid A (Clear) Urine pH 7.0 (4.6-8.0) Ur Specific [place] 1.025 (1.005-1.030) Urine Protein Negative (Negative) Urine Glucose (UA) 100 A (Negative) mg/dL Urine Ketones Negative (Negative) Urine Blood Negative (Negative) Urine Nitrite Positive A (Negative) Urine Bilirubin Negative (Negative) Urine Urobilinogen 4.0 A (0.2) mg/dL Ur Leukocyte Esterase Small A (Negative) U Hyaline Cast (Auto) NONE SEEN (0-2) /LPF Urine Microscopic RBC 3-5 (0-5) /HPF Urine Microscopic WBC 21-50 A (0-5) /HPF Ur Epithelial Cells None Seen (None Seen) /HPF Urine Bacteria Many A (None Seen) /HPF Urine Culture Reflexed YES (NO) 03/21/24 Range/Units 11:40 WBC 8.2 (4.23-9.07) x10^3/uL RBC 4.80 (4.63-6.08) x10^6/uL Hgb 15.2 (13.7-17.5) g/dL Hct 45.3 (40.1-51.0) % MCV 94.4 H (79.0-92.2) fL MCH 31.7 (25.7-32.2) pg MCHC 33.6 (32.3-36.5) g/dL RDW 11.9 (11.6-14.4) % Plt Count 268 (163-337) x10^3/uL MPV 9.5 (9.4-12.4) fL Gran % 54.0 (34.0-67.9) % Immature Gran % (Auto) 0.2 (0.001-0.429) % Nucleat RBC Rel Count 0.0 (0.00-0.2) % Eos # (Auto) 0.24 (0.04-0.54) x10^3/uL Immature Gran # (Auto) 0.02 (0.001-0.031) x10^3u/L Absolute Lymphs (auto) 2.89 (1.32-3.57) x10^3/uL Absolute Monos (auto) 0.59 (0.30-0.82) x10^3/uL Absolute Nucleated RBC 0.00 (0.00-0.012) x10^3u/L Lymphocytes % 35.2 (21.8-53.1) % Monocytes % 7.2 (5.3-12.2) % Eosinophils % 2.9 (0.8-7.0) % Basophils % 0.5 (0.2-1.2) % Absolute Granulocytes 4.43 (1.78-5.38) x10^3/uL Basophils # 0.04 (0.01-0.08) x10^3/uL Sodium (135-145) mmol/L Potassium (3.5-5.1) mmol/L Chloride (98-107) mmol/L Carbon Dioxide (22-30) mmol/L Anion Gap (5-15) MEQ/L BUN (9-20) mg/dL Creatinine (0.66-1.25) mg/dL Estimated GFR ML/MIN Glucose (74-106) mg/dL Calcium (8.4-10.2) mg/dL Total Bilirubin (0.2-1.3) mg/dL AST (17-59) U/L ALT (0-50) U/L Alkaline Phosphatase (38-126) U/L Troponin I (0.000-0.033) ng/mL Serum Total Protein (6.3-8.2) g/dL Albumin (3.5-5.0) g/dL Amylase (30-110) U/L Lipase (23-300) U/L Urine Color (Yellow) Urine Appearance (Clear) Urine pH (4.6-8.0) Ur Specific [place] (1.005-1.030) Urine Protein (Negative) Urine Glucose (UA) (Negative) mg/dL Urine Ketones (Negative) Urine Blood (Negative) Urine Nitrite (Negative) Urine Bilirubin (Negative) Urine Urobilinogen (0.2) mg/dL Ur Leukocyte Esterase (Negative) U Hyaline Cast (Auto) (0-2) /LPF Urine Microscopic RBC (0-5) /HPF Urine Microscopic WBC (0-5) /HPF Ur Epithelial Cells (None Seen) /HPF Urine Bacteria (None Seen) /HPF Urine Culture Reflexed (NO) - Progress Progress: improved, pain not gone completely, re-examined Progress Note: 03/21/24 11:23 My medical decision making and the assignment of moderate complexity to this patient's medical issue today is based on review of the patient's past medical history, review of the patient's medication list, review patient drug allergy list, history present illness and physical findings on examination. The workup in this patient includes placement of intravenous line, twelve-lead EKG, CT scan of the head without contrast, CT scan of the abdomen pelvis without contrast, lumbar spine reconstruction CT scan, CBC, CMP, twelve-lead EKG, urinalysis, urine drug screen. Differential diagnosis includes but is not limited to acute intracranial abnormality, electrolyte abnormalities, urinary tract infection, lumbar spine abnormality 03/21/24 13:45 I interpreted the patient's laboratory data results. Based on the laboratory data results, the patient has pancreatitis as well as a urinary tract infection. No other acute or emergent findings present. The radiologist interpreted the 3 CT scans that were ordered. All without contrast: CT scan of the abdomen pelvis shows 2 nonobstructing left renal calculi. Mild diffuse fecal stasis. Chronic findings of minimal degenerative spondylosis and minimal aortic calcifications without abdominal aortic aneurysm. CT scan of the head shows no acute intracranial abnormalities. There is paranasal sinus disease. CT scan of the lumbar spine reconstruction shows minimal degenerative endplate spurring and minimal levoscoliosis. There is no evidence of any acute compression fracture or subluxation. 03/21/24 14:11 I had a long discussion with this patient. I reviewed his laboratory data results, I reviewed his radiographic studies with him. Together, we discussed his options. Patient's preference is to go home. Patient is awake he is alert and oriented. He is involved with his medical care closely. He has a combination of sinusitis, urinary tract infection and at least mild pancreatitis. They see no inflammation around the pancreas. He was told to be on a clear liquid diet for the next 24 hours and slowly advance his diet after that period of time. He is also to avoid fatty greasy spicy foods. He is also supposed to avoid alcohol ingestion. He is to look for signs of worsening back pain, abdominal pain and associated nausea and vomiting which she does not have at this time. His vital signs are stable and he is afebrile. Together, we have decided that he will be treated as an outpatient and he will return to the emergency department if his symptoms worsen as described above. He will follow- up with his primary care provider today to make arrangements for a follow-up appointment to be seen in the next 3 to 5 days 03/21/24 14:13 I am placing this patient on doxycycline as that antibiotic will cover both sinusitis and urinary tract infections Counseled pt/family regarding: lab results, diagnosis, rad results Medical Desision Making - Independent Historian Additional History obtained from: Relative/friend - Diagnostic Testing Diagnostic test were ordered, analyzed, and reviewed by me: Yes Radiological Interpretation: Reviewed by me, Teleradiologist Report - Risk of complications The pt has a mod risk of morbidity or mortality based on: Need for prescription drug management - Departure Departure Disposition: Home Clinical Impression: Pancreatitis, Sinusitis, UTI (urinary tract infection) Condition: Stable Critical Care Time: No Referrals: GERALD GAMBINO MD [Primary Care Provider] - Follow up/PCP as directed Additional Instructions: Drink plenty of clear liquids over the next 24 hours. Avoid fatty greasy spicy foods. After 24 hours of clear liquids diet, advance your diet slowly to a regular diet, again, avoiding fatty greasy spicy foods. Avoid alcohol ingestion. Call your primary care provider today, 03/21/2024, to make arr angements for follow-up appointment to be seen in the next 3 to 5 days. Return to the emergency department if you begin having abdominal pain with associated nausea and vomiting or your back pain is worsening. Prescriptions: Doxycycline Hyclate 100 mg [Vibramycin 100 MG] 100 mg PO BID #14 tab
[2024-03-21 11:10] VITALS: TEMP 97.5
[2024-03-21 11:49] LABS: Absolute Neutrophil Ct (ANC) 4.43 x10^3/uL (1.78-5.38); BASOPHIL % 0.5 % (0.2-1.2); Basophil (Absolute #) 0.04 x10^3/uL (0.01-0.08); Eosinophil % 2.9 % (0.8-7.0); Eosinophil (Absolute #) 0.24 x10^3/uL (0.04-0.54); Hematocrit 45.3 % (40.1-51.0); Hemoglobin 15.2 g/dL (13.7-17.5); IMMATURE GRAN # 0.02 x10^3u/L (0.001-0.031); IMMATURE GRAN % 0.2 % (0.001-0.429); Lymphocyte (Absolute #) 2.89 x10^3/uL (1.32-3.57); Lymphocytes % 35.2 % (21.8-53.1); Mean Cell Volume 94.4 fL (79.0-92.2); Mean Corpuscular Hemoglobin 31.7 pg (25.7-32.2); Mean Corpuscular Hgb Concent. 33.6 g/dL (32.3-36.5); Mean Platelet Volume 9.5 fL (9.4-12.4); Monocyte (Absolute #) 0.59 x10^3/uL (0.30-0.82); Monocytes % 7.2 % (5.3-12.2); Platelet Count 268 x10^3/uL (163-337); Red Cell Distribution Width 11.9 % (11.6-14.4); White Blood Count 8.2 x10^3/uL (4.23-9.07)
[2024-03-21 12:01] LABS: ALBUMIN 4.4 g/dL (3.5-5.0); ANION GAP 14.4 MEQ/L (5-15); BILIRUBIN,TOTAL 0.7 mg/dL (0.2-1.3); Calcium 9.3 mg/dL (8.4-10.2); Creatinine 1 0.9 mg/dL (0.66-1.25); EST GLOMERULAR FILTRATION RATE 108.7 ML/MIN; Potassium 3.9 mmol/L (3.5-5.1); Total Protein 7.6 g/dL (6.3-8.2)
[2024-03-21 13:05] VITALS: PULSE 80
--- NOTE | 2024-03-21 13:16 | XRAY ---
Indication: Upper extremity weakness. Multiple contiguous axial images obtained through the head without contrast. Comparison: None Ventriculosulcal pattern appears symmetric. Both frontal lobes demonstrates 3-4 mm calcification adjacent to caudate head either sequela to infection/insult or metabolic etiology. Both basal ganglia demonstrates a few petechial benign-appearing physiologic calcifications. No acute intracranial hemorrhage, abnormal extra-axial fluid collection, or mass effect. Fourth ventricle is midline without hydrocephalus. Quintero-white matter differentiation preserved. Bony calvarium intact. Moderate mucosal thickening both ethmoid and lesser degree both frontal sinuses without fluid leveling. Mastoid air cells are clear. Impression: 1. Benign intracranial microcalcification as detailed. 2. No acute intracranial abnormalities. 3. Incidental paranasal sinus disease.
--- NOTE | 2024-03-21 13:20 | XRAY ---
Indication: Bilateral flank and low back pain. History kidney stones. Multiple contiguous axial images obtained through the abdomen and pelvis without contrast using renal stone protocol. Comparison: June 18, 2019 Lung bases again demonstrate small left lower lobe calcified granuloma. No infiltrate or effusion. Heart not enlarged. Left lower renal calyx demonstrates 2 nonobstructing calculus measuring 1 cm and 0.5 cm each. No other renal calculus or evidence for obstructive uropathy. Stomach is distended with food. Noncontrasted stomach and bowel loops appear nonobstructed with normal appendix. There is now mild diffuse scattered colonic fecal debris throughout. No free fluid/air. Remaining liver, gallbladder, pancreas, spleen, adrenal glands, kidneys, ureters, and bladder are unremarkable for noncontrast exam. Again minimal aortic calcifications without AAA. Osseous structures intact with minimal degenerative changes throughout spine and minimal lumbar levoscoliosis centered at L2-L3. Impression: 1. Two new nonobstructing left renal calculi. 2. Mild diffuse fecal stasis. 3. Chronic findings including minimal degenerative spondylosis, minimal levoscoliosis, and old granulomatous disease. 4. Remaining CT abdomen/pelvis without contrast exam is negative.
--- NOTE | 2024-03-21 13:22 | XRAY ---
Indication: Lumbar pain. Heaviness. Sagittal, coronal, and axial reformatted images lumbar spine obtained using raw data from same day CT abdomen/pelvis exam. Comparison: June 18, 2019 Minimal multilevel anterior endplate spurring. No acute fracture, suspicious bony lesions, or spinal canal stenosis. Facets are symmetric. Sagittal and coronal reformatted images demonstrates normal lumbar lordosis with minimal levoscoliosis centered at L2-L3. No acute compression fracture subluxation. CT abdomen/pelvis report separately. Impression: Minimal degenerative endplate spurring and minimal levoscoliosis. Remaining CT lumbar spine normal.
[2024-03-21 13:34] LABS: Appearance Turbid (Clear); Bacteria Many /HPF (None Seen); Bilirubin Negative (Negative); Blood Negative (Negative); Epithelial Cells None Seen /HPF (None Seen); Glucose, Urine 100 mg/dL (Negative); Hyaline Casts NONE SEEN /LPF (0-2); Ketones Negative (Negative); Leukocyte Esterase Small (Negative); Nitrite Positive (Negative); Protein,Urine Dip Negative (Negative); Specific Gravity 1.025 (1.005-1.030); WBC 21-50 /HPF (0-5)
[2024-03-21 13:55] LABS: Barbiturate,Urine NEGATIVE (NEGATIVE); Benzodiazepine,Urine NEGATIVE (NEGATIVE); Cocaine,Urine NEGATIVE (NEGATIVE); Methadone,Urine NEGATIVE (NEGATIVE); Opiate,Urine NEGATIVE (NEGATIVE); PCP,Urine NEGATIVE (NEGATIVE); THC,Urine POSITIVE (NEGATIVE)
[2024-03-21] MEDS ORDERED: Vibramycin 100 MG ONE (14:16)
[2024-03-21] MEDS: Vibramycin 100 MG PO ONE (14:16)
[2024-03-21 14:29] VITALS: BP 140/93; RESP 18; O2SAT 98
[2024-03-21 14:59] LABS: Amphetamine,Urine POSITIVE (NEGATIVE)
== END 2024-03-21 14:30 | disposition home or self-care (01) ==
LOC: ED 10:46
DX: K85.90 Acute pancreatitis without necrosis or infection, unspecified (principal); J32.9 Chronic sinusitis, unspecified; N39.0 Urinary tract infection, site not specified; R07.9 Chest pain, unspecified; M54.50 Low back pain, unspecified; M62.81 Muscle weakness (generalized); Z79.899 Other long term (current) drug therapy; Z72.0 Tobacco use
CPT/HCPCS: 36415; 70450; 74176; 76376; 80053; 80307; 81001; 82150; 83690; 84484; 85025; 87086; 93005; 99284; A9270-GY

== ENCOUNTER 2024-06-28 06:21 | Emergency (ER) | payer OTHER ==
[2024-06-28 06:50] VITALS: PULSE 89; RESP 18; TEMP 97.8; O2SAT 98
--- NOTE | 2024-06-28 07:08 | ERPHSYRPT ---
- History of Present Illness Time Seen by Provider: 06/28/24 06:55 Source: patient Exam Limitations: no limitations Patient Subjective Stated Complaint: pt states he has been having sever sore throat and body aches and pain Triage Nursing Assessment: pt awake and alert, answers questions approp. pt ambulates to room with steadyg ait noted. respriations nonlabored. throat red. pt states increased pain with swallowing Physician History: This is a 44-year-old white male patient who presents to the emergency room by private vehicle accompanied by family/friend with complaints of sore throat and bodyaches for approximately 2 days. Patient is able to breeze. He has no stridor and he is able to swallow his secretions. His primary complaint is sore throat. He has not measured a fever at home. He has no abdominal pain. He has no nausea vomiting or diarrhea symptoms. He has no chest pain or shortness of breath. Timing/Duration: day(s) (2) Cough Quality/Degree: no cough Possible Cause: no prior episodes Modifying Factors: Improves With: other (Hurts to swallow) Associated Symptoms: muscle aches, sore throat Allergies/Adverse Reactions: Penicillins Allergy (Verified 06/28/24 06:50) Hx Tetanus, Diphtheria Vaccination/Date Given: Yes Hx Influenza Vaccination/Date Given: No Hx Pneumococcal Vaccination/Date Given: No Immunizations Up to Date: Yes Travel Risk - International Travel Have you traveled outside of the country in past 3 weeks: No - Emerging Infectious Disease Are you exhibiting symptoms associated with any current EIDs: Yes Symptoms: Fever, Headaches/Body Aches/ - Review of Systems Constitutional: No Symptoms Eyes: No Symptoms Ears, Nose, & Throat: Throat Pain Respiratory: No Symptoms Cardiac: No Symptoms Abdominal/Gastrointestinal: No Symptoms Genitourinary Symptoms: No Symptoms Musculoskeletal: No Symptoms Skin: No Symptoms Neurological: No Symptoms Psychological: No Symptoms Endocrine: No Symptoms Hematologic/Lymphatic: No Symptoms Immunological/Allergic: No Symptoms All Other Systems: Reviewed and Negative - Past Medical History Pertinent Past Medical History: No Neurological History: No Pertinent History ENT History: No Pertinent History Cardiac History: No Pertinent History Respiratory History: No Pertinent History Endocrine Medical History: No Pertinent History Musculoskeletal History: No Pertinent History GI Medical History: No Pertinent History History: No Pertinent History Psycho-Social History: No Pertinent History Male Reproductive Disorders: No Pertinent History Other Medical History: kidney stones - Past Surgical History Past Surgical History: Yes Neuro Surgical History: No Pertinent History Cardiac: No Pertinent History Respiratory: No Pertinent History Gastrointestinal: No Pertinent History Genitourinary: No Pertinent History Musculoskeletal: No Pertinent History Male Surgical History: No Pertinent History Other Surgical History: kidney stone stent - Social History Smoking Status: Current every day smoker How long have you smoked: years Exposure to second hand smoke: Yes Drug Use: none Patient Lives Alone: No - Social Determinants of Health Will the patient participate in the screening: Declined to provide In the past 12 months,have you had to go without utilities?: No Transportation Issues: No Has anyone in your support network made you feel unsafe?: No Have you or anyone in your house had to go without enough: No - Nursing Vital Signs Nursing Vital Signs: Initial Vital Signs Temperature 97.8 F 06/28/24 06:38 Pulse Rate 89 06/28/24 06:38 Respiratory Rate 18 06/28/24 06:38 Blood Pressure 135/97 06/28/24 06:38 O2 Sat by Pulse Oximetry 98 06/28/24 06:38 Pain Scale Pain Intensity 5 - Physical Exam General Appearance: no apparent distress, alert, anxiety Eye Exam: PERRL/EOMI, eyes nml inspection Ears, Nose, Throat Exam: moist mucous membranes, pharyngeal erythema, tonsillar exudate Neck Exam: normal inspection, non-tender, supple, full range of motion Respiratory Exam: normal breath sounds, lungs clear, airway intact, No chest tenderness, No respiratory distress Cardiovascular Exam: regular rate/rhythm, normal heart sounds, normal peripheral pulses Gastrointestinal/Abdomen Exam: soft, normal bowel sounds, No tenderness Rectal Exam: not done Back Exam: normal inspection, normal range of motion, No CVA tenderness, No vertebral tenderness Extremity Exam: normal inspection, normal range of motion, pelvis stable Neurologic Exam: alert, oriented x 3, cooperative, door and arrival attendant II-XII nml as tested, nml cerebellar function, nml station & gait, sensation nml Skin Exam: normal color, warm, dry Lymphatic Exam: No adenopathy SpO2 Interpretation: normal SpO2: 98 O2 Delivery: Room Air - Course Nursing assessment & vital signs reviewed: Yes Ordered Tests: Medication Summary Discontinued Medications Generic Name Dose Route Start Last Admin Trade Name Freq PRN Reason Stop Dose Admin Hydrocodone Bitart/Acetaminophen 15 ml 06/28/24 07:08 Hydrocodone/Acetaminophen 5 Ml Udcup PO 06/28/24 07:09 STAT STA Ceftriaxone Sodium 1,000 mg 06/28/24 07:08 Ceftriaxone Sodium 1000 Mg Inj Vial IM 06/28/24 07:09 STAT ONE Methylprednisolone Sodium 0 mg 06/28/24 07:08 Succinate 125 mg/ Sterile IM 06/28/24 07:09 Water 2 ml STAT ONE Lab/Rad Data: Laboratory Results 06/28/24 Range/Units 06:47 Influenza Type A Ag NEGATIVE (NEGATIVE) Influenza Type B Ag NEGATIVE (NEGATIVE) RSV (PCR) NEGATIVE (NEGATIVE) SARS-CoV-2 (PCR) NEGATIVE (NEGATIVE) Group A Strep Antibody DETECTED (NEGATIVE) - Progress Progress: unchanged Air Movement: good Progress Note: 06/28/24 07:14 My medical decision making and the assignment of low complexity to this patient's medical issue today is based on review of the patient's past medical history, review the patient's medication list, reviewed patient drug allergy list, history present illness and physical findings on examination. The workup on the patient includes group A strep test and influenza A/B, RSV and COVID testing. Differential diagnosis includes but is not limited to strep pharyngitis, viral illness. 06/28/24 07:44 I interpreted the patient's laboratory data results. Based on the laboratory data results, the patient has positive strep pharyngitis. Blood Culture(s) Obtained: No Antibiotics given: Yes Counseled pt/family regarding: lab results, diagnosis, need for follow-up Medical Desision Making - Independent Historian Additional History obtained from: Relative/friend - Diagnostic Testing Diagnostic test were ordered, analyzed, and reviewed by me: Yes - Risk of complications The pt has a mod risk of morbidity or mortality based on: Need for prescription drug management - Departure Departure Disposition: Home Clinical Impression: Strep pharyngitis Condition: Stable Critical Care Time: No Referrals: ART JOY MD [Primary Care Provider] - Follow up/PCP as directed Additional Instructions: Drink plenty of cold fluids. Take your steroids, antibiotic and pain medication as prescribed. Call your primary care provider today, 06/28/2024, to make arranges for follow-up appointment for further evaluation and management. Prescriptions: Prednisone 10 mg [Deltasone 10 mg] 10 mg PO TID #12 tablet Hydrocodone/Acetaminophen [Hydrocodone-Acetamn 7.5-325/15] 10 ml PO Q8H PRN #120 ml MDD 30 ml PRN Reason: Cough Azithromycin 250 mg [Zithromax 250 MG TABLET] 250 mg PO ZPACK #6 tablet
[2024-06-28 07:11] LABS: Group A Strep DETECTED (NEGATIVE)
[2024-06-28 07:30] LABS: INFLUENZA A NEGATIVE (NEGATIVE); INFLUENZA B NEGATIVE (NEGATIVE); RESPIRATORY SYNCTIAL VIRUS NEGATIVE (NEGATIVE); SARS-CoV-2 Xpert Express NEGATIVE (NEGATIVE)
[2024-06-28] MEDS ORDERED: Sterile H2O 10 ml IJ ONE (07:48)
[2024-06-28] MEDS ORDERED: HYDROCODONE-ACETAMIN 2.5-108/5 ML SOLUTION ONE (07:48)
[2024-06-28] MEDS ORDERED: solu-MEDROL ONE (07:48)
[2024-06-28] MEDS ORDERED: Rocephin 1000 MG INJ ONE (07:49)
[2024-06-28] MEDS ORDERED: XYLOCAINE 1% HCL 20 ML MDV ONE (07:50)
[2024-06-28] MEDS: HYDROCODONE-ACETAMIN 2.5-108/5 ML SOLUTION PO STA (07:55)
[2024-06-28] MEDS: solu-MEDROL 125 MG, Sterile H2O 10 ml 2 ML IM ONE (07:57)
[2024-06-28] MEDS: Rocephin 1000 MG INJ IM ONE (07:58)
[2024-06-28 08:09] VITALS: BP 124/85
== END 2024-06-28 08:38 | disposition home or self-care (01) ==
LOC: ED 06:21
DX: J02.0 Streptococcal pharyngitis (principal); M79.10 Myalgia, unspecified site; Z79.52 Long term (current) use of systemic steroids; Z79.891 Long term (current) use of opiate analgesic; Z79.899 Other long term (current) drug therapy; Z72.0 Tobacco use
CPT/HCPCS: 0241U; 87651; 96372; 99284; 99283; J0696; J2919; A9270-GY